=== PATIENT | female | born 1980 | race Hispanic/Latino ===

== ENCOUNTER 2021-06-21 19:33 | Emergency (ER) | payer BC, MEDICAID ==
[2021-06-21 19:55] VITALS: BP 134/85
--- NOTE | 2021-06-21 20:18 | XRay Report ---
Right foot 3 views INDICATION: Surgery FINDINGS: Postoperative changes great toe metatarsal. MTP joints and IP joints appear normal. Midfoot alignment appears normal. No displaced fracture Signer Name: Gregg Iqbal MD Signed: 06/21/2021 8:14 PM Workstation Name: [id number]
--- NOTE | 2021-06-21 20:34 | Emergency Department Report ---
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 She just shifted her weight and suddenly heard and felt a pop in the right foot. At first she said that it felt good, but then progressively she began having pain and swelling. The pain is to the bottom of the foot towards the front of the midfoot. She has tried some ibuprofen without any relief. She has a history of diabetes and fibromyalgia. She has a history of 2 previous surgeries in that right foot. ED Past Medical Hx - Past Medical History Previous Medical History?: Yes Hx Diabetes: Yes (IDDM) Additional medical history: Fibromyalgia. Neuropathy - Surgical History Past Surgical History?: Yes Hx Cholecystectomy: Yes Additional Surgical History: Rt foot x 2. breast sx - Medications Home Medications: Home Medications Medication Instructions Recorded Confirmed Last Taken Type HYDROcodone/APAP 5-325 [[place] 1 each PO Q6HR PRN #12 tablet 06/21/21 Unknown Rx 5/325] ED Review of Systems ROS: Stated complaint: RT FOOT INJURY Other details as noted in HPI Comment: All other systems reviewed and negative Constitutional: denies: chills, fever Musculoskeletal: joint swelling, arthralgia Neurological: denies: numbness, paresthesias Physical Exam - Physical Exam Vital Signs: Vital Signs 06/21/21 19:50 Temperature 98.4 F Pulse Rate 78 Respiratory 14 Rate Blood Pressure 134/85 [Right] O2 Sat by Pulse 100 Oximetry Physical Exam: GENERAL: The patient is well-developed well-nourished. HENT: Normocephalic. Atraumatic. Patient has moist mucous membranes. EYES: Extraocular motions are intact. NECK: Supple. Trachea is midline. SKIN: Skin is warm and dry. There is nonpitting swelling to the distal half of the right foot, worse to the plantar portion and to the toes. NEURO: The patient is awake, alert, and oriented. The patient is cooperative. The patient has no focal neurologic deficits. Normal speech. MUSCULOSKELETAL: Tenderness to palpation to the plantar midfoot. Dorsalis pedis pulse +24 and capillary refill less than 2 seconds. ED Course Vital Signs 06/21/21 19:50 Temperature 98.4 F Pulse Rate 78 Respiratory 14 Rate Blood Pressure 134/85 [Right] O2 Sat by Pulse 100 Oximetry ED Medical Decision Making - Radiology Data Radiology results: image reviewed interpreted by me: X-ray of the right foot does not show any fracture, dislocation, or any acute process. - Medical Decision Making This patient presents to the emergency department with complaint of a 3-day history of right foot pain and swelling. There is appreciable swelling to the distal half of the right foot, worse in the plantar portion and to the toes. She appears neurovascular intact with +2/4 dorsalis pedis pulse and capillary refill less than 2 seconds. X-ray does not show any fracture, dislocation, or any acute process. She says that she has a postop surgical sandal, crutches at home. Given a prescription for pain medication and out patient referral for podiatry and orthopedics. Critical Care Time: No Critical care attestation.: If time is entered above; I have spent that time in minutes in the direct care of this critically ill patient, excluding procedure time. ED Disposition Clinical Impression: Right foot pain, Swelling of right foot Disposition: 01 HOME / SELF CARE / HOMELESS Is pt being admited?: No Condition: Stable Instructions: Foot Pain Additional Instructions: Please follow-up with your primary care physician. I have given you a referral for a local liner replacer, Dr. Talbot, and a local orthopedist, Dr. Garza, to follow-up regarding your right foot pain and swelling. Use ice, rest, elevation and compression. You have been prescribed a medication that is sedating and therefore should not be taken prior to driving, working, and responsible for children and in no way should be mixed with alcohol of any quantity. Return to the emergency department with any worsening of your symptoms, new or concerning symptoms not addressed during this current emergency department visit, or with any acute distress. Prescriptions: HYDROcodone/APAP 5-325 [[place] 5/325] 1 each PO Q6HR PRN #12 tablet PRN Reason: Pain Referrals: VANCE GILLESPIE [Other] - 3-5 Days NITA TALBOT DPM [Staff Physician] - 3-5 Days AB GARZA MD [Staff Physician] - 3-5 Days Time of Disposition: 20:35
== END 2021-06-21 20:41 | disposition home or self-care (01) ==
LOC: ED 19:33 → EEVIPCON 19:33 → ED 20:41
DX: M79.671 Pain in right foot (principal); M79.89 Other specified soft tissue disorders; E11.9 Type 2 diabetes mellitus without complications; Z90.49 Acquired absence of other specified parts of digestive tract
CPT/HCPCS: 99283